=== PATIENT | male | born 1980 | race Caucasian/White ===

== ENCOUNTER 2021-01-17 19:45 | Emergency (ER) | payer SELFPAY ==
[~2021-01-17] VITALS: Ht 157.5 cm; Wt 99.8 kg
[2021-01-17 19:46] VITALS: BP 149/93
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
--- NOTE | 2021-01-17 20:06 | NUR ---
Dr Dorado evaluating patient
[2021-01-17 20:17] VITALS: BP 149/93
--- NOTE | 2021-01-17 20:17 | NUR ---
PATIENT BIB [facility]. PATIENT EXAMINED BY DR. Dorado. PATIENT MEDICALLY CLEARED AND RELEASED IN CUSTODY IN STABLE CONDITION. ORIGINAL PRE-BOOK FORM GIVEN TO OFFICER [facility].
== END 2021-01-17 20:16 ==
LOC: MED 19:45
DX: Z02.89 Encounter for other administrative examinations (principal); F10.10 Alcohol abuse, uncomplicated
CPT/HCPCS: 99283